=== PATIENT | male | born 1955 | race Caucasian/White ===

== ENCOUNTER 2024-02-02 13:08 | Inpatient (IN) | payer MEDICARE, SELFPAY ==
[2024-02-02] VITALS (21 sets, daily range): BP systolic 88–127; BP diastolic 52–75; PULSE 84–112; RESP 22–49; TEMP 36.9–37.6; O2SAT 92–99; BMI 33.4
--- NOTE | 2024-02-02 13:15 | DI.RAD.S_ITS ---
PROCEDURE: XR CHEST 1V INDICATIONS: Shortness of breath TECHNIQUE: One view of the chest was acquired. COMPARISON: None. FINDINGS: Surgical changes and devices: None. Lungs and pleura: Right basilar patchy consolidation. No pleural effusions or pneumothorax. Mediastinum: Mediastinal contours appear normal. Heart size is normal. Bones and chest wall: No suspicious bony lesions. Overlying soft tissues appear unremarkable. IMPRESSION: Right basilar patchy consolidation which may reflect atelectasis, aspiration and/or pneumonia. Recommend radiographic follow-up to docking resolution and rule out underlying neoplasm. Dictated by: Tay Jama M.D. on 02/02/2024 at 14:18 Approved by: Tay Jama M.D. on 02/02/2024 at 14:18
[2024-02-02 13:50] LABS: Hematocrit 41.7 % (41-53); Hemoglobin 13.9 g/dL (13.5-17.5); Mean Corpuscular HGB Conc 33.4 % (30-36); Mean Corpuscular Hemoglobin 30.2 PG (26-34); Mean Corpuscular Volume 90.6 fL (80-100); Platelet Count 140 X10^3/uL (150-400); Red Blood Cell Count 4.61 X10^6/uL (4.5-5.9)
[2024-02-02 13:52] LABS: Add Manual Diff / Slide Review YES
[2024-02-02 14:05] LABS: INR 1.2 (0.9-1.3); Prothrombin Time 13.7 SECONDS (9.4-12.5)
[2024-02-02 14:06] LABS: Neutrophils Absolute Manual 19580 /uL (3000-5900); Total Cells Counted 100
[2024-02-02 14:10] LABS: Albumin 4.1 g/dL (3.5-5.0); Albumin Globulin Ratio 1.5 (1.0-2.8); Alkaline Phosphatase 71 U/L (38-126); Aspartate Aminotransferase 30 IU/L (17-59); BUN Creatinine Ratio 16.6 (6-22); Bilirubin Total 1.4 mg/dL (0.2-1.3); Blood Urea Nitrogen 32 mg/dL (9-20); Calcium 8.9 mg/dL (8.4-10.2); Carbon Dioxide 17 mmol/L (22-32); Chloride 104 mmol/L (98-107); Estimated Glomerular Filt Rate 37 mL/min (>60); Globulin 2.8 g/dL (1.7-4.1); Glucose 121 mg/dL (80-110); HEMOLYSIS < 15 (0-50); Lipase 27 U/L (23-300); Potassium 4.2 mmol/L (3.4-5.1); Sodium 134 mmol/L (137-145); Total Protein 6.9 g/dL (6.3-8.2)
[2024-02-02 14:13] LABS: Lactate (Lactic Acid) 5.8 mmol/L (0.7-2.1)
[2024-02-02 14:14] LABS: RBC Morphology Normal Morphology
[2024-02-02 14:18] LABS: Alanine Aminotransferase 31 IU/L (<50)
--- NOTE | 2024-02-02 14:20 | ED.GENADULT ---
HPI - General Adult General Chief complaint: Shortness of Breath/Dyspnea Stated complaint: SOB Time Seen by Provider: 02/02/24 13:41 Source: patient Mode of arrival: Ambulatory History of Present Illness HPI narrative: 68-year-old gentleman with a history of hyperlipidemia, hypertension, prior stroke for which she takes aspirin, no prior cardiac disease presents with increasing weakness and significant dyspnea that has been progressive over last 2 days. They noted yesterday while walking through [employer] he developed significant chills followed by sweats once they got home, he did have a single episode of emesis. He describes mild cough, no significant abdominal pain, intermittent episodes of chest pain more on the left side than the right side. He has not noticing palpitations, headache, no skin changes or findings. Related Data Allergies Allergy/AdvReac Type Severity Reaction Status Date / Time No Known Drug Allergies Allergy Verified 02/02/24 13:10 Review of Systems Review of Systems Narrative: Pertinent positive and negative findings as per HPI Patient History Medical History (Updated 02/02/24 @ 15:50 by Kristi Oliveira MD) Stroke Hyperlipidemia Hypertension Social History Smoking Status: Never smoker Smoking Status: Never smoker alcohol intake frequency: holidays/special occasions only Substance Use Type: marijuana Exam Initial Vital Signs Initial Vital Signs: Vital Signs Temperature 98.5 F 02/02/24 13:10 Pulse Rate 112 H 02/02/24 13:10 Respiratory Rate 24 02/02/24 13:10 Blood Pressure 110/59 L 02/02/24 13:10 Pulse Oximetry 95 02/02/24 13:10 Oxygen Delivery Method Room Air 02/02/24 13:10 General: Pale, fatigued appearing but able to speak in full sentences, Able to give a complete and coherent history. HEENT: Moist mucous membranes, normal sclera with reactive pupils, Neck: No JVD, supple Respiratory: Lungs with scattered wheezing upper lung dasilva, lower dasilva with rhonchi and rales Cardiac: Regular rate and rhythm no murmurs no bruits Abdomen: Soft, nontender, good bowel tones, no flank pain Skin: Pale but no significant rashes or evidence of cellulitis Neurologic: Globally weak but Grossly neurologically intact with no obvious asymmetries or abnormalities Extremities: No trauma, well perfused Psych: Cooperative, appropriate insight and affect Course Orders Ordered: ED Orders 02/02/24 13:15 XR chest 1V Stat EKG-12 Lead Stat Measure peak expiratory flow ONCE RT Consult Eval and Treat NOW 02/02/24 13:38 Complete Blood Count AUTO DIFF Stat Comprehensive Metabolic Panel Stat Lactate (Lactic Acid) Stat Lipase Stat NT-proBNP (BNP-Adult 18+) Stat PTT Partial Thromboplastin Epi Stat Procalcitonin Stat Prothrombin Time INR Stat Troponin I Stat 02/02/24 14:10 Blood Culture Stat 02/02/24 14:27 CT chest abd pel wo con Stat 02/02/24 15:01 MRSA (Nasal) PCR Stat 02/02/24 15:48 UA Complete [Urinalysis and Microscopic] Stat 02/02/24 15:52 Respiratory Panel (Film Array) Stat 02/05/24 15:00 Vancomycin Trough Urgent 02/05/24 17:30 Vancomycin Peak Urgent Vancomycin HCl/Dextrose (Vancomycin) 2,000 mg in 400 mls @ 200 mls/hr IV NOW ONE Stop: 02/02/24 17:14 Vancomycin HCl (Vancomycin) 1,250 mg in 250 mls @ 250 mls/hr IV Q24H JARRETT Sodium Chloride (Normal Saline 0.9%) 1,000 mls @ 150 mls/hr IV CONT JARRETT Ondansetron HCl (Ondansetron 4 Mg/2 Ml Inj) 4 mg IV NOW PRN PRN Reason: Nausea And Vomiting Ondansetron HCl (Ondansetron 4 Mg Odt) 4 mg SL NOW PRN PRN Reason: Nausea And Vomiting Vancomycin HCl (Vancomycin Trough) 1 request MISC 1500 ONE Stop: 02/05/24 15:01 Vancomycin HCl (Vancomycin Peak) 1 request MISC 1730 ONE Stop: 02/05/24 17:31 Discontinued Medications Sodium Chloride (Normal Saline 0.9%) 1,000 mls @ 1,000 mls/hr IV BOLUS ONE Stop: 02/02/24 14:22 Last Infusion: 02/02/24 15:38 Dose: Infused Documented By: Admin: 02/02/24 14:26 Dose: 1,000 mls/hr Documented By: ARNAUD Sodium Chloride (Normal Saline 0.9%) 1,000 mls @ 1,000 mls/hr IV BOLUS ONE Stop: 02/02/24 15:26 Last Admin: 02/02/24 15:38 Dose: 1,000 mls/hr Documented By: ARNAUD Cefepime HCl 2 gm/ Sodium (Chloride) 100 mls @ 200 mls/hr IV NOW ONE Stop: 02/02/24 14:28 Last Admin: 02/02/24 15:37 Dose: 200 mls/hr Documented By: ARNAUD Vancomycin HCl (Vancomycin Per Pharmacy) 1 request MISC NOW ONE Stop: 02/02/24 14:29 Vital Signs Vital signs: Vital Signs - 8 hr 02/02/24 13:10 02/02/24 13:18 02/02/24 13:19 Temperature 98.5 F Pulse Rate 112 H 109 H 106 H Respiratory Rate 24 44 H 44 H Blood Pressure 110/59 L Pulse Oximetry 95 95 Oxygen Delivery Method Room Air 02/02/24 13:19 02/02/24 13:30 02/02/24 13:43 Temperature Pulse Rate 106 H Respiratory Rate 44 H Blood Pressure 104/67 127/69 Pulse Oximetry 94 Oxygen Delivery Method 02/02/24 13:43 02/02/24 13:45 02/02/24 13:45 Temperature Pulse Rate 104 H 106 H Respiratory Rate 42 H 38 H Blood Pressure 125/58 L Pulse Oximetry 96 97 Oxygen Delivery Method 02/02/24 14:00 02/02/24 14:00 02/02/24 14:15 Temperature Pulse Rate 104 H 104 H Respiratory Rate 40 H 42 H Blood Pressure 94/55 L Pulse Oximetry 98 97 Oxygen Delivery Method 02/02/24 14:15 02/02/24 14:30 02/02/24 14:30 Temperature Pulse Rate 102 H Respiratory Rate 37 H Blood Pressure 97/58 L 94/61 Pulse Oximetry 96 Oxygen Delivery Method 02/02/24 14:47 02/02/24 14:47 02/02/24 15:00 Temperature Pulse Rate 102 H 100 H Respiratory Rate 34 H 40 H Blood Pressure 100/59 L Pulse Oximetry 98 99 Oxygen Delivery Method 02/02/24 15:00 02/02/24 15:16 02/02/24 15:16 Temperature Pulse Rate 99 H Respiratory Rate 41 H Blood Pressure 98/56 L 106/75 Pulse Oximetry 99 Oxygen Delivery Method 02/02/24 15:30 02/02/24 15:30 02/02/24 15:46 Temperature Pulse Rate 100 H 106 H Respiratory Rate 40 H 49 H Blood Pressure 110/72 Pulse Oximetry 98 97 Oxygen Delivery Method 02/02/24 15:46 02/02/24 16:00 02/02/24 16:00 Temperature Pulse Rate 100 H Respiratory Rate 38 H Blood Pressure 102/74 107/75 Pulse Oximetry 98 Oxygen Delivery Method Medical Decision Making Lab Data 02/02/24 13:38 02/02/24 13:38 Labs: Lab Results 02/02/24 02/02/24 Range/Units 13:38 15:48 WBC 22.0 H (4.5-11.0) X10^3/uL RBC 4.61 (4.5-5.9) X10^6/uL Hgb 13.9 (13.5-17.5) g/dL Hct 41.7 (41-53) % MCV 90.6 (80-100) fL MCH 30.2 (26-34) PG MCHC 33.4 (30-36) % RDW 14.0 (11.6-14.8) % Plt Count 140 L (150-400) X10^3/uL Neut % (Auto) Not Reportable Lymph % (Auto) Not Reportable [place] % (Auto) Not Reportable Eos % (Auto) Not Reportable Baso % (Auto) Not Reportable Lymph # (Auto) Not Reportable [place] # (Auto) Not Reportable Baso # (Auto) Not Reportable Total Counted 100 Seg Neutrophils % 82.0 H (38-70) % Band Neutrophils % 7.0 (3-7) % Lymphocytes % (Manual) 5.0 L (25-45) % Monocytes % (Manual) 5.0 (2-11) % Metamyelocytes % 1.0 H (-0) % Neutrophils # (Manual) 13311 H (2202-2161) /uL RBC Morphology Normal morphology PT 13.7 H (9.4-12.5) SECONDS INR 1.2 (0.9-1.3) APTT 34 (25.1-36.5) SECONDS Sodium 134 L (137-145) mmol/L Potassium 4.2 (3.4-5.1) mmol/L Chloride 104 (98-107) mmol/L Carbon Dioxide 17 L (22-32) mmol/L BUN 32 H (9-20) mg/dL Creatinine 1.93 H (0.66-1.25) mg/dL Estimated GFR 37 L (>60) mL/min BUN/Creatinine Ratio 16.6 (6-22) Glucose 121 H (80-110) mg/dL Lactate 5.8 H* (0.7-2.1) mmol/L Calcium 8.9 (8.4-10.2) mg/dL Total Bilirubin 1.4 H (0.2-1.3) mg/dL AST 30 (17-59) IU/L ALT 31 (<50) IU/L Alkaline Phosphatase 71 (38-126) U/L Troponin I < 0.012 (0.01-0.034) ng/mL NT-Pro-B Natriuret Pep 2260 H (<125) pg/mL Total Protein 6.9 (6.3-8.2) g/dL Albumin 4.1 (3.5-5.0) g/dL Globulin 2.8 (1.7-4.1) g/dL Albumin/Globulin Ratio 1.5 (1.0-2.8) Lipase 27 (23-300) U/L Procalcitonin 24.0 H (<0.5) ng/mL Urine Color Yellow Urine Appearance Clear Urine pH 5.5 (4.5-8.0) Ur Specific [place] 1.025 (1.000-1.035) Urine Protein Trace H (Negative) Urine Glucose (UA) Negative (Negative) g/dL Urine Ketones Negative (NEGATIVE) Urine Occult Blood Trace-intact (Negative) Urine Nitrate Positive H (Negative) Urine Bilirubin Negative (NEGATIVE) Urine Urobilinogen 0.2 (0.2) E.U./dL Ur Leukocyte Esterase Negative (NEGATIVE) Urine RBC 0-1/hpf (0-5/HPF) Urine WBC 0-1/hpf (0-5/HPF) Ur Squamous Epith Cells 0-1 /hpf (0-5/HPF) Amorphous Sediment 1+ Urine Bacteria Occasional (0-1) (None) Hyaline Casts 0-1/lpf (None) Urine Mucus 1+ H (Negative) Ur Culture Indicated? Cult not indicated Vol Urine Centrifuged 10ml (spun) Imaging Data CT scan chest abdomen pelvis: Radiologist's Impression: PROCEDURE: CT CHEST ABD PEL WO CON INDICATIONS: Sepsis, diffuse abdominal pain, episode of emesis yesterday, TECHNIQUE: After the administration of oral contrast, 5 mm thick sections acquired from the lung apices to the symphysis pubis. 5 mm thick coronal and sagittal reformats acquired, with additional 7 mm coronal MIP reformats through the lungs. For radiation dose reduction, the following was used: automated exposure control, adjustment of mA and/or kV according to patient size. COMPARISON: [facility], CR, XR CHEST 1V, 02/02/2024, 13:32. FINDINGS: Image quality: Diagnostic. Evaluation of the visceral organs is limited due to the lack of intravenous contrast. CHEST: Lower Neck: No enlarged lymph nodes. Thyroid: No thyroid nodules which require sonographic follow up, per consensus guidelines. Axillae: No enlarged lymph nodes. Chest Wall: Unremarkable. Bones: No acute fractures. No aggressive appearing lytic or blastic osseous lesion. Lungs and Pleura: No pneumothorax or pleural effusions. Large right lower lobe patchy consolidation (2/44). Patent central airways. Heart: Heart size is at the upper limits of normal. No pericardial effusion. Thoracic Vessels: The aorta and pulmonary arteries demonstrate normal size. Mild calcification of the thoracic aorta. Mediastinum and [place]: No enlarged lymph nodes. Esophagus: No wall thickening. No hiatal hernia. ABDOMEN: Liver: No solid mass. Diffuse hypoattenuation of the liver. Gallbladder: Hydropic gallbladder with no wall thickening, stones, sludge or pericholecystic fluid. Biliary ducts: No biliary dilation. Pancreas: No ductal dilation. Spleen: Size is within normal limits. Adrenal Glands: No adrenal nodules. Kidneys and Ureters: No hydronephrosis. No solid mass. No complex renal cystic lesion which requires follow up. Stomach and Bowel: Stomach is decompressed, limiting evaluation, but appears grossly normal. Small and large bowel is normal in caliber, without obstruction. Normal appendix (2/109). Sigmoid and scattered colonic diverticulosis, without diverticulitis. Peritoneum: No abnormal intraperitoneal fluid. No free air. Ventral Wall: No hernia. Abdominal Nodes: No retroperitoneal or mesenteric adenopathy by size criteria. Vessels: Aorta and inferior vena cava are normal in size. Moderate calcification of the abdominal aorta and iliac vessels. PELVIS: Pelvic Organs: Mild prostatomegaly. Bladder: Unremarkable. Pelvic Nodes: No enlarged lymph nodes. Miscellaneous: No inguinal hernias are seen. Bones: No aggressive osseous abnormality. No acute fractures. Mild multilevel degenerative changes of the spine. IMPRESSION: Evaluation of the visceral organs is limited due to the lack of intravenous contrast. 1. Large right lower lobe patchy consolidation compatible with large volume aspiration and/or pneumonia. 2. No acute pathology in the abdomen or pelvis. 3. Colonic diverticulosis, without diverticulitis. 4. Diffuse hypoattenuation of the liver suggestive of steatosis. Dictated by: Tay Jama M.D. on 02/02/2024 at 14:57 MDM Narrative Medical decision making narrative: CC: Chest pain, dyspnea, fevers and chills Complicating co-morbidities: Hypertension, hyperlipidemia, prior CVA Data collected from: patient, Social determinants of health that may influence the patients condition: They travel extensively and live in their motor home Differential considered: NSTEMI, congestive heart failure, sepsis, pneumothorax Exam documented above, pertinent findings include: Patient appears fatigued, mild wheeze rhonchi and rales appreciated on exam, no lower extremity edema and no jugular venous distention. Lab Test results independently reviewed as above. Pertinent findings: White blood cell count is dramatic at 22 with platelets 140 normal H&H 82% neutrophils Lactic acid elevated at 5.8 PT minimally elevated at 13.7 Chemistries are notable for acute kidney injury with creatinine at 1.93, potassium 4.2. Sodium of 134. Carbon dioxide low at 17. Glucoses at 1:21 a.m., total bili is slightly elevated at 1.4 AST ALT and alk-phos are unremarkable Troponin is undetectable proBNP is elevated at greater than 2000 Respiratory panel currently pending as is repeat lactic acid Independently reviewed EKG: Sinus tachycardia at 106, first-degree block Imaging studies independently reviewed: Right-sided lower lung and consolidation concerning for pneumonia CT scan of the chest abdomen and pelvis done for diffuse abdominal pain and sepsis uncertain etiology shows significant right basilar pneumonia without alternate explanation. Most likely source of his sepsis Treatments: Fluids, IV cefepime and vancomycin, Zofran Oxygen saturations remained at 96% however he has increasing tachypnea. Nasal cannula oxygen is placed for comfort Discussion: 68-year-old gentleman with rigors and chills yesterday not complaining of significant cough comes in generally feeling unwell tachycardic hypotensive, tachypneic. Chest x-ray suggests a right lower [place] [id number] with a lactic acid at 5.8. The right lower lobe pneumonia did not seem significant enough to cause such significant lab abnormality so CT scan of the chest abdomen and pelvis was done that does not suggest an alternate source for his sepsis. He has not been hospitalized nor on antibiotics recently. Fluids, cefepime with vancomycin are started. At this point he has not needing additional respiratory support. He is responding nicely to initial fluid bolus. He will need hospital admission, reviewed with Dr. Winkler, day hospitalist Additional Information: Severe Sepsis Criteria [ x ] bacterial source of infection suspected and documented [x ] 2 SIRS Criteria met [ x ] HR >90 [x ] RR >20 [ ] fever or hypothermia [ x ] leukocytosis/leukopenia/bandemia [ ] Evidence of at least 1 organ system dysfunction [ x ] Lactate > 2 [ ] BP < 90 or MAP <65, >40mm decrease from normal baseline [ ] Creat > 2.0 [ ] T. Bili > 2.0 [ ] platelet count < 100k [ ] altered mental status [ ] mechanical ventilation [ ] provider documentation of severe sepsis Severe Sepsis Determination. the patient has been screened and [ x ] DOES meet criteria for severe sepsis [ ] DOES NOT meet criteria for severe sepsis Goal directed treatment Within 3 hours [ x ] blood cx drawn prior to abx [ x ] broad spectrum abx started [ x] lactic acid level checked [ x ] lactic redrawn within 6 hours if >2.0 Septic Shock Criteria [ ] lactic > 4 at any time [ ] SBP ,90 or MAP , 65 [ ] documentation of septic shock Time Septic Shock diagnosed: [ ] Septic Shock Determination. the patient has been screened and [ ] DOES meet criteria for septic shock [x ] DOES NOT meet criteria for septic shock Goal directed therapy within 3 hours of septic shock or initial hypotension [ ] 30ml/kg fluid [ ] ABW used [ x ] IBW (33.6) used due to BMI > 30 [ ] patient or advocate declining fluid administration after shared decision making conversation Clinical reason for NOT initiating fluid bolus: Within 6 hours (if continued hypotension after fluids or initial lactate >4) [ ] repeat volume status and tissue perfusion assessment documented after fluid bolus was completed at [Date/Time] Must include vital signs, cardiopulmonary exam, capillary refill, peripheral pulse evaluation, skin exam [ ] Initiate vasopressor therapy if persistent hypotension after adequate fluid bolus Discharge Plan Departure Patient Disposition: Admitted as Observation Clinical Impression: Acute kidney injury Right lower lobe pneumonia Qualifiers: Pneumonia type: due to unspecified organism Qualified Code(s): J18.9 - Pneumonia, unspecified organism Sepsis Qualifiers: Sepsis type: sepsis due to unspecified organism Sepsis acute organ dysfunction status: with acute organ dysfunction Severe sepsis acute organ dysfunction type: acute renal failure Acute renal failure type: unspecified Severe sepsis shock status: without septic shock Qualified Code(s): A41.9 - Sepsis, unspecified organism Admit Date/Time: 02/02/24 16:21
[2024-02-02 14:22] LABS: NT-proBNP (BNP-Adult 18+) 2260 pg/mL (<125); Troponin I < 0.012 ng/mL (0.01-0.034)
[2024-02-02 14:25] LABS: PTT Partial Thromboplastin Tim 34 SECONDS (25.1-36.5)
[2024-02-02] MEDS: SODIUM CHLORIDE 0.9% 1,000 ML 1000 ML IV ×2 (14:26→15:38)
--- NOTE | 2024-02-02 14:27 | DI.CT.S_ITS ---
PROCEDURE: CT CHEST ABD PEL WO CON INDICATIONS: Sepsis, diffuse abdominal pain, episode of emesis yesterday, TECHNIQUE: After the administration of oral contrast, 5 mm thick sections acquired from the lung apices to the symphysis pubis. 5 mm thick coronal and sagittal reformats acquired, with additional 7 mm coronal MIP reformats through the lungs. For radiation dose reduction, the following was used: automated exposure control, adjustment of mA and/or kV according to patient size. COMPARISON: [facility], CR, XR CHEST 1V, 02/02/2024, 13:32. FINDINGS: Image quality: Diagnostic. Evaluation of the visceral organs is limited due to the lack of intravenous contrast. CHEST: Lower Neck: No enlarged lymph nodes. Thyroid: No thyroid nodules which require sonographic follow up, per consensus guidelines. Axillae: No enlarged lymph nodes. Chest Wall: Unremarkable. Bones: No acute fractures. No aggressive appearing lytic or blastic osseous lesion. Lungs and Pleura: No pneumothorax or pleural effusions. Large right lower lobe patchy consolidation (2/44). Patent central airways. Heart: Heart size is at the upper limits of normal. No pericardial effusion. Thoracic Vessels: The aorta and pulmonary arteries demonstrate normal size. Mild calcification of the thoracic aorta. Mediastinum and [place]: No enlarged lymph nodes. Esophagus: No wall thickening. No hiatal hernia. ABDOMEN: Liver: No solid mass. Diffuse hypoattenuation of the liver. Gallbladder: Hydropic gallbladder with no wall thickening, stones, sludge or pericholecystic fluid. Biliary ducts: No biliary dilation. Pancreas: No ductal dilation. Spleen: Size is within normal limits. Adrenal Glands: No adrenal nodules. Kidneys and Ureters: No hydronephrosis. No solid mass. No complex renal cystic lesion which requires follow up. Stomach and Bowel: Stomach is decompressed, limiting evaluation, but appears grossly normal. Small and large bowel is normal in caliber, without obstruction. Normal appendix (2/109). Sigmoid and scattered colonic diverticulosis, without diverticulitis. Peritoneum: No abnormal intraperitoneal fluid. No free air. Ventral Wall: No hernia. Abdominal Nodes: No retroperitoneal or mesenteric adenopathy by size criteria. Vessels: Aorta and inferior vena cava are normal in size. Moderate calcification of the abdominal aorta and iliac vessels. PELVIS: Pelvic Organs: Mild prostatomegaly. Bladder: Unremarkable. Pelvic Nodes: No enlarged lymph nodes. Miscellaneous: No inguinal hernias are seen. Bones: No aggressive osseous abnormality. No acute fractures. Mild multilevel degenerative changes of the spine. IMPRESSION: Evaluation of the visceral organs is limited due to the lack of intravenous contrast. 1. Large right lower lobe patchy consolidation compatible with large volume aspiration and/or pneumonia. 2. No acute pathology in the abdomen or pelvis. 3. Colonic diverticulosis, without diverticulitis. 4. Diffuse hypoattenuation of the liver suggestive of steatosis. Dictated by: Tay Jama M.D. on 02/02/2024 at 14:57 Approved by: Tay Jama M.D. on 02/02/2024 at 15:02
[2024-02-02 15:22] LABS: Reflexed Lactate in 2 Hours Y
[2024-02-02] MEDS: CEFEPIME 2 GM in SODIUM CHLORIDE 0.9% 100 ML IV (15:37)
[2024-02-02 15:54] LABS: Appearance Urine UA CLEAR; Bilirubin Urine UA NEGATIVE (NEGATIVE); Color Urine UA YELLOW; Glucose Urine UA NEGATIVE (Negative); Ketones Urine UA NEGATIVE (NEGATIVE); Leukocyte Esterase Urine UA NEGATIVE (NEGATIVE); Nitrite Urine UA POSITIVE (Negative); Occult Blood Urine UA TRACE-INTACT (Negative); Protein Urine UA TRACE (Negative); Specific Gravity Urine UA 1.025 (1.000-1.035); Urobilinogen Urine UA 0.2 E.U./dL (0.2); pH Urine UA 5.5 (4.5-8.0)
[2024-02-02 16:02] LABS: Amorphous Sediment Urine 1+; Bacteria Urine Occasional (0-1); RBC Urine 0-1/HPF (0-5/HPF); Squamous Epithelial Cell Urine 0-1 /HPF (0-5/HPF); Urine Volume 10mL (spun); WBC Urine 0-1/HPF (0-5/HPF)
[2024-02-02 16:03] LABS: Culture Indicated Urine Cult Not Indicated; Hyaline Casts Urine 0-1/LPF; Mucus Urine 1+ (Negative)
[2024-02-02] MEDS: VANCOMYCIN 2,000 MG/400 ML PIGGYBACK 200 MG IV (16:15)
[2024-02-02] MEDS: ONDANSETRON 4 MG/2 ML INJ IV (16:18)
[2024-02-02] MEDS: ALBUTEROL/IPRATROPIUM 3 ML AMPUL INH (16:29)
[2024-02-02 17:04] LABS: Adenovirus Not Detected (Not Detect); B. parapertussis Not Detected (Not Detecte); Bordetella pertussis Not Detected (Not Detect); Chlamydophila pneumoniae Not Detected (Not Detect); Coronavirus 229E Not Detected (Not Detect); Coronavirus HKU1 Not Detected (Not Detect); Coronavirus NL 63 Not Detected (Not Detect); Coronavirus OC43 Not Detected (Not Detect); Human Metapneumovirus Not Detected (Not Detect); Human Rhinovirus/Enterovirus Not Detected (Not Detect); Influenza A Not Detected (Not Detect); Influenza B Not Detected (Not Detect); Mycoplasma pneumoniae Not Detected (Not Detect); Parainfluenza Virus 1 Not Detected (Not Detect); Parainfluenza Virus 2 Not Detected (Not Detect); Parainfluenza Virus 3 Not Detected (Not Detect); Parainfluenza Virus 4 Not Detected (Not Detect); Respiratory Syncytial Virus Not Detected (Not Detect); SARS- CoV-2 Not Detected (Not Detecte)
[2024-02-02 17:15] LABS: Lactate 2HR (Lactic Acid Rflx) 4.5 mmol/L (0.7-2.1)
--- NOTE | 2024-02-02 17:23 | PM.HP.1 ---
History of Present Illness History of Present Illness Date Patient Seen: 02/02/24 Time Patient Seen: 17:25 Chief complaint: SOB Narrative: He became ill about 2 days ago. He has had weakness, a sensation of dyspnea, as well as anorexia. He has had a dry, nonproductive cough. He denies any chest pain. Because of progressive weakness and dyspnea he presented to the emergency department today. There he was found to have a respiratory rate that cardia and imaging evidence of a right lower lobe consolidation. The patient has a history of stroke 6 years ago but no history of choking or dysphagia. The patient denies recent fevers, or chills. In the emergency department he was given a 30 milliliter/kilogram bolus for sepsis with tachypnea, tachycardia, leukocytosis, and evidence of KARIME. The patient does feel somewhat better after fluids. He was also given cefepime and vancomycin. CT scan of the chest confirmed infiltrate in the abdomen was also scan was fairly unremarkable. He does have diverticulosis. He denies drinking, and stopped smoking cigarettes in 1979. The patient uses marijuana occasionally. He is currently living in an RV with his . He denies nausea, vomiting or diarrhea. No urinary symptoms. [facility] Medical History Stroke Hyperlipidemia Hypertension Social History Smoking Status: Never smoker Meds Home Medications and Allergies Home Medications Medication Instructions Recorded Confirmed Type atorvastatin 40 mg tablet 40 mg PO DAILY 02/02/24 02/02/24 History losartan 100 mg tablet 50 mg PO DAILY 02/02/24 02/02/24 History Allergies Allergy/AdvReac Type Severity Reaction Status Date / Time No Known Drug Allergies Allergy Verified 02/02/24 13:10 Review of Systems Review of Systems Narrative: All else reviewed and otherwise unremarkable except as noted in the history and physical. Exam Vital Signs (past 8 hours): - 02/02/24 13:10 02/02/24 13:18 02/02/24 13:19 Temperature 98.5 F Pulse Rate 112 H 109 H 106 H Respiratory Rate 24 44 H 44 H Blood Pressure 110/59 L Pulse Oximetry 95 95 Oxygen Delivery Method Room Air 02/02/24 13:19 02/02/24 13:30 02/02/24 13:43 Temperature Pulse Rate 106 H Respiratory Rate 44 H Blood Pressure 104/67 127/69 Pulse Oximetry 94 Oxygen Delivery Method 02/02/24 13:43 02/02/24 13:45 02/02/24 13:45 Temperature Pulse Rate 104 H 106 H Respiratory Rate 42 H 38 H Blood Pressure 125/58 L Pulse Oximetry 96 97 Oxygen Delivery Method 02/02/24 14:00 02/02/24 14:00 02/02/24 14:15 Temperature Pulse Rate 104 H 104 H Respiratory Rate 40 H 42 H Blood Pressure 94/55 L Pulse Oximetry 98 97 Oxygen Delivery Method 02/02/24 14:15 02/02/24 14:30 02/02/24 14:30 Temperature Pulse Rate 102 H Respiratory Rate 37 H Blood Pressure 97/58 L 94/61 Pulse Oximetry 96 Oxygen Delivery Method 02/02/24 14:47 02/02/24 14:47 02/02/24 15:00 Temperature Pulse Rate 102 H 100 H Respiratory Rate 34 H 40 H Blood Pressure 100/59 L Pulse Oximetry 98 99 Oxygen Delivery Method 02/02/24 15:00 02/02/24 15:16 02/02/24 15:16 Temperature Pulse Rate 99 H Respiratory Rate 41 H Blood Pressure 98/56 L 106/75 Pulse Oximetry 99 Oxygen Delivery Method 02/02/24 15:30 02/02/24 15:30 02/02/24 15:46 Temperature Pulse Rate 100 H 106 H Respiratory Rate 40 H 49 H Blood Pressure 110/72 Pulse Oximetry 98 97 Oxygen Delivery Method 02/02/24 15:46 02/02/24 16:00 02/02/24 16:00 Temperature Pulse Rate 100 H Respiratory Rate 38 H Blood Pressure 102/74 107/75 Pulse Oximetry 98 Oxygen Delivery Method 02/02/24 16:16 02/02/24 16:16 02/02/24 16:30 Temperature Pulse Rate 102 H 100 H Respiratory Rate 42 H 43 H Blood Pressure 112/63 Pulse Oximetry 97 98 Oxygen Delivery Method 02/02/24 16:30 02/02/24 16:45 02/02/24 16:45 Temperature Pulse Rate 96 H Respiratory Rate 39 H Blood Pressure 112/59 L 104/57 L Pulse Oximetry 97 Oxygen Delivery Method 02/02/24 17:00 02/02/24 17:00 Temperature Pulse Rate 96 H Respiratory Rate 37 H Blood Pressure 88/52 L Pulse Oximetry 94 Oxygen Delivery Method Oxygen Delivery Method Room Air Narrative Exam Narrative: NAD, alert and oriented, fluent speech, calm. Tachypnea. Not labored. Normocephalic skull, EOMI, anicteric sclera, symmetric pupils. Oropharynx unremarkable, no droop. Neck supple, midline trachea, no adenopathy. Lungs clear, normal rate and effort. Heart regular, no murmur gallop or rub. Abdomen is soft, non distended and non tender. Extremities are free of edema. Skin is free of rash or lesions. Joints are not swollen or deformed. Judgment appears to be normal. Objective Imaging Chest x-ray: Radiologist's impression: Right basilar patchy consolidation which may reflect atelectasis, aspiration and/or pneumonia. Recommend radiographic follow-up to docking resolution and rule out underlying neoplasm. CT Chest/Abdomen/Pelvis:: Radiologist's impression: 1. Large right lower lobe patchy consolidation compatible with large volume aspiration and/or pneumonia. 2. No acute pathology in the abdomen or pelvis. 3. Colonic diverticulosis, without diverticulitis. 4. Diffuse hypoattenuation of the liver suggestive of steatosis. Labs 02/02/24 13:38 02/02/24 13:38 Labs: Laboratory Results - last 24 hr 02/02/24 02/02/24 02/02/24 13:38 15:48 16:09 WBC 22.0 H RBC 4.61 Hgb 13.9 Hct 41.7 MCV 90.6 MCH 30.2 MCHC 33.4 RDW 14.0 Plt Count 140 L Neut % (Auto) Not Reportable Lymph % (Auto) Not Reportable [place] % (Auto) Not Reportable Eos % (Auto) Not Reportable Baso % (Auto) Not Reportable Lymph # (Auto) Not Reportable [place] # (Auto) Not Reportable Baso # (Auto) Not Reportable Total Counted 100 Seg Neutrophils % 82.0 H Band Neutrophils % 7.0 Lymphocytes % (Manual) 5.0 L Monocytes % (Manual) 5.0 Metamyelocytes % 1.0 H Neutrophils # (Manual) 50675 H RBC Morphology Normal morphology PT 13.7 H INR 1.2 APTT 34 Sodium 134 L Potassium 4.2 Chloride 104 Carbon Dioxide 17 L BUN 32 H Creatinine 1.93 H Estimated GFR 37 L BUN/Creatinine Ratio 16.6 Glucose 121 H Lactate 5.8 H* Calcium 8.9 Total Bilirubin 1.4 H AST 30 ALT 31 Alkaline Phosphatase 71 Troponin I < 0.012 NT-Pro-B Natriuret Pep 2260 H Total Protein 6.9 Albumin 4.1 Globulin 2.8 Albumin/Globulin Ratio 1.5 Lipase 27 Procalcitonin 24.0 H Urine Color Yellow Urine Appearance Clear Urine pH 5.5 Ur Specific [place] 1.025 Urine Protein Trace H Urine Glucose (UA) Negative Urine Ketones Negative Urine Occult Blood Trace-intact Urine Nitrate Positive H Urine Bilirubin Negative Urine Urobilinogen 0.2 Ur Leukocyte Esterase Negative Urine RBC 0-1/hpf Urine WBC 0-1/hpf Ur Squamous Epith Cells 0-1 /hpf Amorphous Sediment 1+ Urine Bacteria Occasional (0-1) Hyaline Casts 0-1/lpf Urine Mucus 1+ H Ur Culture Indicated? Cult not indicated Vol Urine Centrifuged 10ml (spun) Chlamy pneumoniae PCR Not detected Adenovirus (PCR) Not detected B.parapertussis DNA PCR Not detected Coronavirus OC43 (PCR) Not detected Coronavirus HKU1 (PCR) Not detected Coronavirus 229E (PCR) Not detected SARS-CoV-2 (PCR) Not detected Coronavirus NL63 (PCR) Not detected Human Metapneumovir PCR Not detected Influenza Type A (PCR) Not detected Influenza Type B (PCR) Not detected M. pneumoniae (PCR) Not detected Parainfluenza 1 (PCR) Not detected Parainfluenza 2 (PCR) Not detected Parainfluenza 3 (PCR) Not detected Parainfluenza 4 (PCR) Not detected RSV (PCR) Not detected Entero/Rhino (PCR) Not detected 02/02/24 16:50 WBC RBC Hgb Hct MCV MCH MCHC RDW Plt Count Neut % (Auto) Lymph % (Auto) [place] % (Auto) Eos % (Auto) Baso % (Auto) Lymph # (Auto) [place] # (Auto) Baso # (Auto) Total Counted Seg Neutrophils % Band Neutrophils % Lymphocytes % (Manual) Monocytes % (Manual) Metamyelocytes % Neutrophils # (Manual) RBC Morphology PT INR APTT Sodium Potassium Chloride Carbon Dioxide BUN Creatinine Estimated GFR BUN/Creatinine Ratio Glucose Lactate 4.5 H* Calcium Total Bilirubin AST ALT Alkaline Phosphatase Troponin I NT-Pro-B Natriuret Pep Total Protein Albumin Globulin Albumin/Globulin Ratio Lipase Procalcitonin Urine Color Urine Appearance Urine pH Ur Specific [place] Urine Protein Urine Glucose (UA) Urine Ketones Urine Occult Blood Urine Nitrate Urine Bilirubin Urine Urobilinogen Ur Leukocyte Esterase Urine RBC Urine WBC Ur Squamous Epith Cells Amorphous Sediment Urine Bacteria Hyaline Casts Urine Mucus Ur Culture Indicated? Vol Urine Centrifuged Chlamy pneumoniae PCR Adenovirus (PCR) B.parapertussis DNA PCR Coronavirus OC43 (PCR) Coronavirus HKU1 (PCR) Coronavirus 229E (PCR) SARS-CoV-2 (PCR) Coronavirus NL63 (PCR) Human Metapneumovir PCR Influenza Type A (PCR) Influenza Type B (PCR) M. pneumoniae (PCR) Parainfluenza 1 (PCR) Parainfluenza 2 (PCR) Parainfluenza 3 (PCR) Parainfluenza 4 (PCR) RSV (PCR) Entero/Rhino (PCR) Assessment & Plan Assessment & Plan narrative: 1. Community-acquired pneumonia, present on admission and active. 2. Sepsis (leukocytosis, tachypnea, fever, tachycardia, KARIME), present on admission and active. 3. Fluid responsive hypotension, present on admission and active. 4. Acute kidney injury, present on admission and active. 5. Hypertension, present on admission and not active. 6. Remote stroke, present on admission and stable. PLAN: -blood cultures and sputum cultures, follow. -empiric antibiotics, we will continue. -monitor breathing status carefully. -continue IV fluids at 1:50 a.m. an hour. Patient was full resuscitation. He is admitted inpatient status, there is a 2 midnight expectation for his medical necessity of hospitalist services. Time Spent With Patient Time with patient: 30 to 49 minutes with 50% spent counseling/coordinating care Quality MIPS - Admit I confirm the patient?s Advance Care Plan is present, Code status is documented, Surrogate decision maker is in patient?s record [If Yes, STOP here]: Yes MIPS - Meds 'Current medications' to include all prescriptions, [id number] products, herbals, cannabis/cannabidiol products, and vitamin/mineral/dietary (nutritional) supplements. I have utilized all available resources to obtain, update, or review the patient?s current medications. [If Yes, STOP here]: Yes
[2024-02-02] MEDS: SODIUM CHLORIDE 0.9% 1,000 ML 150 ML IV (18:36)
[2024-02-02] MEDS: cefTRIAXone 2,000 MG in SODIUM CHLORIDE 0.9% 100 ML 200 MG IV (18:37)
[2024-02-02] MEDS: SENNOSIDES 8.6 MG TABLET 17.2 MG PO (20:15)
[2024-02-02] MEDS: VANCOMYCIN PER PHARMACY 1 REQUEST MISC (20:16)
[2024-02-02] MEDS: HEPARIN 5,000 UNIT/ML VIAL 5000 UNIT SUBCUT (20:16)
[2024-02-02] MEDS: AZITHROMYCIN 500 MG in DEXTROSE 5% IN WATER 250 ML 250 MG IV (20:16)
[2024-02-02] MEDS: ATORVASTATIN 20 MG TABLET 40 MG PO (20:36)
[2024-02-03 00:51] VITALS: BP 112/49; PULSE 94; RESP 27; TEMP 37; O2SAT 93
[2024-02-03] MEDS: SODIUM CHLORIDE 0.9% 1,000 ML 150 ML IV ×3 (02:46→18:47)
[2024-02-03 03:36] LABS: Acinetobacter calcoa-baumannii Not Detected (Not Detect); Bacteroides fragilis Not Detected (Not Detect); Candida albicans Not Detected (Not Detect); Candida auris Not Detected (Not Detect); Candida glabrata Not Detected (Not Detect); Candida krusei Not Detected (Not Detect); Candida parapsilosis Not Detected (Not Detect); Candida tropicalis Not Detected (Not Detect); Cryptococcus neoformans/gatti Not Detected (Not Detect); Enterobacter cloacae complex Not Detected (Not Detect); Enterobacterales Not Detected (Not Detect); Enterococcus faecalis Not Detected (Not Detect); Enterococcus faecium Not Detected (Not Detect); Haemophilus influenzae Not Detected (Not Detect); Klebsiella aerogenes Not Detected (Not Detect); Listeria monocytogenes Not Detected (Not Detect); Neisseria meningitidis Not Detected (Not Detect); Proteus species Not Detected (Not Detect); Pseudomonas aeruginosa Not Detected (Not Detect); Salmonella species Not Detected (Not Detect); Serratia marcescens Not Detected (Not Detect); Staphylococcus epidermidis Not Detected (Not Detect); Staphylococcus lugdunensis Not Detected (Not Detect); Staphylococcus species Not Detected (Not Detect); Stenotrophomonas maltophilia Not Detected (Not Detect); Streptococcus agalactiae (Gr B Not Detected (Not Detect); Streptococcus pneumonia Detected (Not Detect); Streptococcus pyogenes (Gr A) Not Detected (Not Detect); Streptococcus species Detected (Not Detect)
[2024-02-03 04:00] VITALS: BP 99/49; PULSE 80; RESP 30; TEMP 36.8; O2SAT 93
[2024-02-03 05:05] LABS: Add Manual Diff / Slide Review NO; Basophils Absolute Auto 0 /uL (0-100); Basophils Percent Auto 0.1 % (0-2); Eosinophils Absolute Auto 0 /uL (0-450); Hematocrit 36.6 % (41-53); Hemoglobin 12.1 g/dL (13.5-17.5); Lymphocytes Absolute Auto 900 /uL (1100-4500); Lymphocytes Percent Auto 4.6 % (25-40); Mean Corpuscular Volume 90.8 fL (80-100); Monocytes Absolute Auto 1300 /uL (0-900); Monocytes Percent Auto 6.9 % (3-14); Neutrophils Absolute Auto 17000 /uL (1500-7000); Neutrophils Percent Auto 88.4 % (50-75); Platelet Count 121 X10^3/uL (150-400); Red Blood Cell Count 4.03 X10^6/uL (4.5-5.9); Red Cell Distribution Width 14.4 % (11.6-14.8); White Blood Cell Count 19.3 X10^3/uL (4.5-11.0)
[2024-02-03 05:20] LABS: Blood Urea Nitrogen 33 mg/dL (9-20); Calcium 7.7 mg/dL (8.4-10.2); Carbon Dioxide 19 mmol/L (22-32); Chloride 107 mmol/L (98-107); Estimated Glomerular Filt Rate 50 mL/min (>60); Glucose 92 mg/dL (80-110); HEMOLYSIS < 15 (0-50); Potassium 3.9 mmol/L (3.4-5.1); Sodium 133 mmol/L (137-145)
--- NOTE | 2024-02-03 07:19 | P.PN_ITS ---
Subjective Subjective Interval history: H&P: He became ill about 2 days ago. He has had weakness, a sensation of dyspnea, as well as anorexia. He has had a dry, nonproductive cough. He denies any chest pain. Because of progressive weakness and dyspnea he presented to the emergency department today. There he was found to have a respiratory rate that cardia and imaging evidence of a right lower lobe consolidation. The patient has a history of stroke 6 years ago but no history of choking or dysphagia. The patient denies recent fevers, or chills. In the emergency department he was given a 30 milliliter/kilogram bolus for sepsis with tachypnea, tachycardia, leukocytosis, and evidence of KARIME. The patient does feel somewhat better after fluids. He was also given cefepime and vancomycin. CT scan of the chest confirmed infiltrate in the abdomen was also scan was fairly unremarkable. He feels better today but is still a little dyspneic. He denies any pain. He has not confused. WBC is 19.3 and respiratory rate remains at 30. Exam Vital Signs (past 8 hours): - 02/03/24 00:51 02/03/24 04:00 Temperature 98.6 F 98.2 F Pulse Rate 94 H 80 Respiratory Rate 27 H 30 H Blood Pressure 112/49 L 99/49 L Pulse Oximetry 93 93 Oxygen Flow Rate 0 0 Oxygen Delivery Method Room Air Oxygen Flow Rate 0 Narrative Exam Narrative: No acute distress, calm he would normal speech. Increased respiratory rate but normal effort. Lungs are relatively clear. No wheezing. Heart is regular, without murmur. Abdomen is non distended. Legs are free of edema. Objective Labs 02/03/24 04:36 02/03/24 04:36 Labs: Laboratory Results - last 24 hr 02/02/24 02/02/24 02/02/24 13:38 14:10 15:48 WBC 22.0 H RBC 4.61 Hgb 13.9 Hct 41.7 MCV 90.6 MCH 30.2 MCHC 33.4 RDW 14.0 Plt Count 140 L Neut % (Auto) Not Reportable Lymph % (Auto) Not Reportable [place] % (Auto) Not Reportable Eos % (Auto) Not Reportable Baso % (Auto) Not Reportable Neut # (Auto) Lymph # (Auto) Not Reportable [place] # (Auto) Not Reportable Eos # (Auto) Baso # (Auto) Not Reportable Total Counted 100 Seg Neutrophils % 82.0 H Band Neutrophils % 7.0 Lymphocytes % (Manual) 5.0 L Monocytes % (Manual) 5.0 Metamyelocytes % 1.0 H Neutrophils # (Manual) 48888 H RBC Morphology Normal morphology PT 13.7 H INR 1.2 APTT 34 Sodium 134 L Potassium 4.2 Chloride 104 Carbon Dioxide 17 L BUN 32 H Creatinine 1.93 H Estimated GFR 37 L BUN/Creatinine Ratio 16.6 Glucose 121 H Lactate 5.8 H* Calcium 8.9 Total Bilirubin 1.4 H AST 30 ALT 31 Alkaline Phosphatase 71 Troponin I < 0.012 NT-Pro-B Natriuret Pep 2260 H Total Protein 6.9 Albumin 4.1 Globulin 2.8 Albumin/Globulin Ratio 1.5 Lipase 27 Procalcitonin 24.0 H Urine Color Yellow Urine Appearance Clear Urine pH 5.5 Ur Specific [place] 1.025 Urine Protein Trace H Urine Glucose (UA) Negative Urine Ketones Negative Urine Occult Blood Trace-intact Urine Nitrate Positive H Urine Bilirubin Negative Urine Urobilinogen 0.2 Ur Leukocyte Esterase Negative Urine RBC 0-1/hpf Urine WBC 0-1/hpf Ur Squamous Epith Cells 0-1 /hpf Amorphous Sediment 1+ Urine Bacteria Occasional (0-1) Hyaline Casts 0-1/lpf Urine Mucus 1+ H Ur Culture Indicated? Cult not indicated Vol Urine Centrifuged 10ml (spun) A.calcoaceticus-baumannii cmplx PCR Not detected Chlamy pneumoniae PCR Adenovirus (PCR) Bacteroides fragilis Not detected B.parapertussis DNA PCR Christi albicans (PCR) Not detected Christi auris (PCR) Not detected C. glabrata (PCR) Not detected C. krusei (PCR) Not detected C. parapsilosis (PCR) Not detected C. tropicalis (PCR) Not detected Coronavirus OC43 (PCR) Coronavirus HKU1 (PCR) Coronavirus 229E (PCR) SARS-CoV-2 (PCR) Coronavirus NL63 (PCR) C. neoform/gattii (PCR) Not detected Enterobacterales (PCR) Not detected E. cloacae complex PCR Not detected Enterococc faecalis PCR Not detected Enterococc faecium PCR Not detected E. coli (PCR) Not detected H. influenzae (PCR) Not detected Human Metapneumovir PCR Influenza Type A (PCR) Influenza Type B (PCR) Klebsiella aerogenes (PCR) Not detected Klebsiella oxytoca PCR Not detected Klebsiella pneumoniae Not detected List. monocytogenes PCR Not detected M. pneumoniae (PCR) N. meningitidis (PCR) Not detected Parainfluenza 1 (PCR) Parainfluenza 2 (PCR) Parainfluenza 3 (PCR) Parainfluenza 4 (PCR) Proteus species (PCR) Not detected RSV (PCR) Entero/Rhino (PCR) Salmonella spp. (PCR) Not detected Serratia marcescens PCR Not detected Staphylococcus sp PCR Not detected Staph aureus (PCR) Not detected mecA/C & MREJ Resist Gene Not applicable mecA/C-Methicil Resis Gene Not applicable mcr-1 Colistin Res Gene PCR Not applicable Staph epidermidis (PCR) Not detected Staph lugdunensis PCR Not detected S. maltophilia (PCR) Not detected Streptococcus sp PCR Detected Group A Strep (PCR) Not detected Strep agalactiae (PCR) Not detected Strep pneumoniae (PCR) Detected P. aeruginosa (PCR) Not detected Adolfo/B-Vanco Res Genes Not applicable blaIMP Car res Gene PCR Not applicable KPC-Carbap Res Gene PCR Not applicable blaNDM Car Res Gene PCR Not applicable OXA-48 Carbapenem Resis Gene (PCR) Not applicable blaVIM Car Res Gene PCR Not applicable CTX-M Gene Resistance (PCR) Not applicable 02/02/24 02/02/24 02/03/24 16:09 16:50 04:36 WBC 19.3 H RBC 4.03 L Hgb 12.1 L Hct 36.6 L MCV 90.8 MCH 30.0 MCHC 33.0 RDW 14.4 Plt Count 121 L Neut % (Auto) 88.4 H Lymph % (Auto) 4.6 L [place] % (Auto) 6.9 Eos % (Auto) 0.0 L Baso % (Auto) 0.1 Neut # (Auto) 97695 H Lymph # (Auto) 900 L [place] # (Auto) 1300 H Eos # (Auto) 0 Baso # (Auto) 0 Total Counted Seg Neutrophils % Band Neutrophils % Lymphocytes % (Manual) Monocytes % (Manual) Metamyelocytes % Neutrophils # (Manual) RBC Morphology PT INR APTT Sodium 133 L Potassium 3.9 Chloride 107 Carbon Dioxide 19 L BUN 33 H Creatinine 1.50 H Estimated GFR 50 L BUN/Creatinine Ratio 22.0 Glucose 92 Lactate 4.5 H* Calcium 7.7 L Total Bilirubin AST ALT Alkaline Phosphatase Troponin I NT-Pro-B Natriuret Pep Total Protein Albumin Globulin Albumin/Globulin Ratio Lipase Procalcitonin Urine Color Urine Appearance Urine pH Ur Specific [place] Urine Protein Urine Glucose (UA) Urine Ketones Urine Occult Blood Urine Nitrate Urine Bilirubin Urine Urobilinogen Ur Leukocyte Esterase Urine RBC Urine WBC Ur Squamous Epith Cells Amorphous Sediment Urine Bacteria Hyaline Casts Urine Mucus Ur Culture Indicated? Vol Urine Centrifuged A.calcoaceticus-baumannii cmplx PCR Chlamy pneumoniae PCR Not detected Adenovirus (PCR) Not detected Bacteroides fragilis B.parapertussis DNA PCR Not detected Christi albicans (PCR) Christi auris (PCR) C. glabrata (PCR) C. krusei (PCR) C. parapsilosis (PCR) C. tropicalis (PCR) Coronavirus OC43 (PCR) Not detected Coronavirus HKU1 (PCR) Not detected Coronavirus 229E (PCR) Not detected SARS-CoV-2 (PCR) Not detected Coronavirus NL63 (PCR) Not detected C. neoform/gattii (PCR) Enterobacterales (PCR) E. cloacae complex PCR Enterococc faecalis PCR Enterococc faecium PCR E. coli (PCR) H. influenzae (PCR) Human Metapneumovir PCR Not detected Influenza Type A (PCR) Not detected Influenza Type B (PCR) Not detected Klebsiella aerogenes (PCR) Klebsiella oxytoca PCR Klebsiella pneumoniae List. monocytogenes PCR M. pneumoniae (PCR) Not detected N. meningitidis (PCR) Parainfluenza 1 (PCR) Not detected Parainfluenza 2 (PCR) Not detected Parainfluenza 3 (PCR) Not detected Parainfluenza 4 (PCR) Not detected Proteus species (PCR) RSV (PCR) Not detected Entero/Rhino (PCR) Not detected Salmonella spp. (PCR) Serratia marcescens PCR Staphylococcus sp PCR Staph aureus (PCR) mecA/C & MREJ Resist Gene mecA/C-Methicil Resis Gene mcr-1 Colistin Res Gene PCR Staph epidermidis (PCR) Staph lugdunensis PCR S. maltophilia (PCR) Streptococcus sp PCR Group A Strep (PCR) Strep agalactiae (PCR) Strep pneumoniae (PCR) P. aeruginosa (PCR) Adolfo/B-Vanco Res Genes blaIMP Car res Gene PCR KPC-Carbap Res Gene PCR blaNDM Car Res Gene PCR OXA-48 Carbapenem Resis Gene (PCR) blaVIM Car Res Gene PCR CTX-M Gene Resistance (PCR) [facility] Medical History Stroke Hyperlipidemia Hypertension Social History household members: spouse Smoking Status: Never smoker alcohol intake: current Assessment & Plan Assessment & Plan narrative: 1. Community-acquired pneumonia, present on admission and active. 2. Sepsis (leukocytosis, tachypnea, fever, tachycardia, KARIME), present on admission and active. 3. Fluid responsive hypotension, present on admission and active. 4. Lactic acidosis, present on admission and improving. 5. Acute kidney injury, present on admission and active. 6. Hypertension, present on admission and not active. 7. Remote stroke, present on admission and stable. PLAN: -follow blood cultures and sputum cultures. -Continue antibiotics IV for an additional 24 hours given significant leukocytosis and tachypnea. -monitor breathing status carefully. Still tachypneic. -continue IV fluids at 1:50 a.m. an hour. -trend lactate. Requires a 2nd midnight of hospital level care. Anticipate discharge on February 03 with oral antibiotics if he continues to improve. Patient is full resuscitation. Time Spent With Patient Time with patient: 30 to 49 minutes with 50% spent counseling/coordinating care Quality VTE Deep Vein Thrombosis/Pulmonary Embolism Present on Admission: No
[2024-02-03 07:46] VITALS: BP 105/56; PULSE 83; RESP 19; TEMP 36.6; O2SAT 93
[2024-02-03 08:00] LABS: Lactate (Lactic Acid) 1.9 mmol/L (0.7-2.1)
[2024-02-03] MEDS: HEPARIN 5,000 UNIT/ML VIAL 5000 UNIT SUBCUT ×2 (09:33→20:28)
[2024-02-03 11:00] VITALS: BP 103/50; PULSE 80; RESP 20; TEMP 36.4; O2SAT 94
--- NOTE | 2024-02-03 11:31 | CM.DANOTE ---
Initial DCP Assessment Note Pt is a 68 yo male, currently living in his motor home which he keeps parked at [facility], admitted for management of PNA PCP: Erin Rao Payer: MCR Reviewed chart, pt discussed in multidisciplinary rounds this morning. Likely here another 24-48 hrs. Met w/patient, introduced self and role. Patient and spouse live in their motor home, patient indp in all aspects. Patient has adult children, one in [place] and another in [place]. Patient denies needs from this MAIL CLERK BILLS. No barriers identified at this time to patient's safe discharge back to his [facility]; close outpatient f/u recommended. CM team will plan to follow closely in case any DC needs or concerns arise. LYLY Walker Discharge Planning/Care Management CM Discharge Assessment Start: 02/03/24 11:26 Freq: Status: Active Protocol: Document 02/03/24 11:27 JUSTIN (Rec: 02/03/24 11:30 JUSTIN [id number]) Discharge Planning Assessment Assigned Channel Development Manager LYLY Jean DPOA/Assigned Designee Name Rosa Hernandez, spouse Contact Information [phone] Advance Directives? No History Provided By Patient,Medical Record Prior Living Arrangements RV Household Members spouse Type of transporation used prior to Drives own vehicle admit Independent with ADL's Yes Is patient alert and oriented? Yes Barriers to Discharge No Discharge Plan Home Transportation Arrangement Spouse Referrals Initiated None needed
[2024-02-03] MEDS: OXYCODONE IR 5 MG TABLET PO (13:20)
[2024-02-03] MEDS: ACETAMINOPHEN 325 MG TABLET 650 MG PO (13:20)
[2024-02-03] MEDS: ONDANSETRON 4 MG/2 ML INJ IV (13:21)
[2024-02-03 15:00] VITALS: BP 111/63; PULSE 75; RESP 16; TEMP 36.7; O2SAT 95
[2024-02-03] MEDS: VANCOMYCIN 1,250 MG/250 ML PIGGYBACK 250 MG IV (16:48)
[2024-02-03] MEDS: cefTRIAXone 2,000 MG in SODIUM CHLORIDE 0.9% 100 ML 200 MG IV (18:40)
[2024-02-03 20:00] VITALS: BP 118/67; PULSE 78; RESP 17; TEMP 36.7; O2SAT 95
[2024-02-03] MEDS: SENNOSIDES 8.6 MG TABLET 17.2 MG PO (20:27)
[2024-02-03] MEDS: ATORVASTATIN 20 MG TABLET 40 MG PO (20:27)
[2024-02-03] MEDS: AZITHROMYCIN 500 MG in DEXTROSE 5% IN WATER 250 ML 250 MG IV (20:27)
[2024-02-03 23:33] LABS: MRSA (Nasal) PCR NOT DETECTED (Not Detect)
[2024-02-04] MEDS: SODIUM CHLORIDE 0.9% 1,000 ML 150 ML IV (02:03)
[2024-02-04 04:00] VITALS: BP 117/59; PULSE 70; RESP 17; TEMP 36.7; O2SAT 94
[2024-02-04 05:28] LABS: Add Manual Diff / Slide Review NO; Basophils Absolute Auto 0 /uL (0-100); Basophils Percent Auto 0.2 % (0-2); Blood Urea Nitrogen 25 mg/dL (9-20); Calcium 8.1 mg/dL (8.4-10.2); Carbon Dioxide 22 mmol/L (22-32); Chloride 111 mmol/L (98-107); Eosinophils Absolute Auto 100 /uL (0-450); Eosinophils Percent Auto 0.6 % (2-4); Estimated Glomerular Filt Rate > 60 mL/min (>60); Glucose 98 mg/dL (80-110); HEMOLYSIS < 15 (0-50); Hematocrit 34.4 % (41-53); Hemoglobin 11.6 g/dL (13.5-17.5); Lymphocytes Absolute Auto 700 /uL (1100-4500); Lymphocytes Percent Auto 5.1 % (25-40); Mean Corpuscular HGB Conc 33.7 % (30-36); Mean Corpuscular Hemoglobin 30.3 PG (26-34); Mean Corpuscular Volume 89.8 fL (80-100); Monocytes Absolute Auto 800 /uL (0-900); Monocytes Percent Auto 5.9 % (3-14); Neutrophils Absolute Auto 12700 /uL (1500-7000); Neutrophils Percent Auto 88.2 % (50-75); Platelet Count 122 X10^3/uL (150-400); Potassium 4.2 mmol/L (3.4-5.1); Red Blood Cell Count 3.83 X10^6/uL (4.5-5.9); Red Cell Distribution Width 14.3 % (11.6-14.8); Sodium 137 mmol/L (137-145); White Blood Cell Count 14.3 X10^3/uL (4.5-11.0)
[2024-02-04 08:00] VITALS: BP 132/73; PULSE 69; RESP 18; TEMP 36.6; O2SAT 95
--- NOTE | 2024-02-04 08:54 | P.DS_ITS ---
History of Present Illness History of Present Illness Chief complaint: SOB Narrative: He became ill about 2 days ago. He has had weakness, a sensation of dyspnea, as well as anorexia. He has had a dry, nonproductive cough. He denies any chest pain. Because of progressive weakness and dyspnea he presented to the emergency department today. There he was found to have a respiratory rate that cardia and imaging evidence of a right lower lobe consolidation. The patient has a history of stroke 6 years ago but no history of choking or dysphagia. The patient denies recent fevers, or chills. In the emergency department he was given a 30 milliliter/kilogram bolus for sepsis with tachypnea, tachycardia, leukocytosis, and evidence of KARIME. The patient does feel somewhat better after fluids. He was also given cefepime and vancomycin. CT scan of the chest confirmed infiltrate in the abdomen was also scan was fairly unremarkable. He does have diverticulosis. He denies drinking, and stopped smoking cigarettes in 1979. The patient uses marijuana occasionally. He is currently living in an RV with his . He denies nausea, vomiting or diarrhea. No urinary symptoms. Discharge Providers Provider Date of admission: 02/02/24 16:21 Discharge Date: 02/04/24 Primary care physician: Doctor Segundo MD Consults: None. Discharge provider: Po Winkler MD Summary Hospital Course Discharge Diagnosis: 1. Community-acquired pneumonia, present on admission and improved. 2. Sepsis (leukocytosis, tachypnea, fever, tachycardia, KARIME), present on admission and improved. 3. Fluid responsive hypotension, present on admission and resolved. 4. Lactic acidosis, present on admission and resolved. 5. Acute kidney injury, present on admission and improved. 6. Hypertension, present on admission and not active. 7. Remote stroke, present on admission and stable. Hospital Course: He was admitted with pneumonia and had evidence of sepsis and tachypnea as well as KARIME initially. He was treated with ceftriaxone and azithromycin and had linear improvement clinically over 48 hours. In the day of discharge he was breathing comfortably and had improved leukocytosis down to 15. He was able to speak without difficulty and was breathing and normal respiratory rate. He was given doses of IV azithromycin and ceftriaxone in the day of discharge and will have 4 additional days of cefdinir. Status at Discharge Cognitive/behavioral status at discharge: oriented Functional status at discharge: independent ambulation Overall status at discharge: patient is back to baseline Time Spent with Patient Time spent: Greater than 30 minutes Exam Vital Signs (past 8 hours): - 02/04/24 04:00 02/04/24 08:00 Temperature 98.0 F 97.9 F Pulse Rate 70 69 Respiratory Rate 17 18 Blood Pressure 117/59 L 132/73 Pulse Oximetry 94 95 Oxygen Flow Rate 0 0 Oxygen Delivery Method Room Air Oxygen Flow Rate 0 Narrative Exam Narrative: NAD, alert and oriented. Fluent speech. Lungs are clear, normal rate and effort. Heart is regular, no murmur gallop or rub. Abdomen is soft, non distended. Extremities are free of edema. Objective Labs 02/04/24 04:25 02/04/24 04:25 Labs: Laboratory Results - last 24 hr 02/03/24 02/04/24 22:00 04:25 WBC 14.3 H RBC 3.83 L Hgb 11.6 L Hct 34.4 L MCV 89.8 MCH 30.3 MCHC 33.7 RDW 14.3 Plt Count 122 L Neut % (Auto) 88.2 H Lymph % (Auto) 5.1 L [place] % (Auto) 5.9 Eos % (Auto) 0.6 L Baso % (Auto) 0.2 Neut # (Auto) 38110 H Lymph # (Auto) 700 L [place] # (Auto) 800 Eos # (Auto) 100 Baso # (Auto) 0 Sodium 137 Potassium 4.2 Chloride 111 H Carbon Dioxide 22 BUN 25 H Creatinine 1.19 Estimated GFR > 60 BUN/Creatinine Ratio 21.0 Glucose 98 Calcium 8.1 L Nasal Screen MRSA (PCR) Not detected [facility] Medical History Stroke Hyperlipidemia Hypertension Social History household members: spouse Smoking Status: Never smoker alcohol intake: current Discharge Assessment & Plan Assessment and Plan Assessment: 1. Community-acquired pneumonia, present on admission and improved. 2. Sepsis (leukocytosis, tachypnea, fever, tachycardia, KARIME), present on admission and improved. 3. Fluid responsive hypotension, present on admission and resolved. 4. Lactic acidosis, present on admission and resolved. 5. Acute kidney injury, present on admission and improved. 6. Hypertension, present on admission and not active. 7. Remote stroke, present on admission and stable. Plan of Treatment: Discharge home with cefdinir 300 b.i.d. for 4 additional days. He will follow up for fevers chills or dyspnea. He is asked to follow up with the primary care doctor within a week for re-evaluation. Discharge Plan Discharge Plan Patient Disposition: Home Provider Discharge Comment: Stable for discharge home. We will continue oral antibiotics for 3 more days. Discharge orders & Medications Prescriptions: New cefdinir 300 mg capsule 300 mg PO BID Qty: 8 0RF Continued atorvastatin 40 mg tablet 40 mg PO DAILY losartan 100 mg tablet 50 mg PO DAILY Medication counseling provided by Pharmacist: No Follow up/Referrals: Doctor Raymond MD [Primary Care Provider] - Discharge Health Status Multidrug resistant organism: No MDRO Diet/Activity/Treatments Diet: Regular Activity: As tolerated. Skin/Wound/Dressing Care Report to your healthcare provider any signs of infection, such as:: chills, fever and night sweats Visit Report/Discharge Packet Instructions: DI for Pneumonia -- Adult Stand Alone Forms: Patient Portal/API Discharge Data Primary Care Provider: Doctor Segundo Quality VTE Deep Vein Thrombosis/Pulmonary Embolism Present on Admission: No
[2024-02-04] MEDS: HEPARIN 5,000 UNIT/ML VIAL 5000 UNIT SUBCUT (09:19)
[2024-02-04] MEDS: AZITHROMYCIN 250 MG TABLET 500 MG PO (10:31)
== END 2024-02-04 10:50 | disposition home or self-care (01) | DRG 871 ==
LOC: ED 15:50 → AC 16:21
PROVIDERS: Admitting Provider Hospitalist; Emergency Provider Emergency Medicine; Referring Provider Emergency Medicine; Visit Provider Hospitalist
DX: A41.9 Sepsis, unspecified organism (principal); J18.9 Pneumonia, unspecified organism; N17.9 Acute kidney failure, unspecified; E87.20 Acidosis, unspecified; I10 Essential (primary) hypertension; R65.20 Severe sepsis without septic shock; E78.5 Hyperlipidemia, unspecified; Z86.73 Personal history of transient ischemic attack (TIA), and cerebral infarction without residual deficits
CPT/HCPCS: 36415; 71045; 71250; 74176; 80048; 80053; 81001; 83605; 83690; 83880; 84145; 84484; 85007; 85025; 85610; 85730; 87040; 87077; 87154; 87186; 87633; 87797; 93005; 94640; 96365; 96366; 96368; 96375; 99284; 99285; J0692; J0696; J1644; J2405